=== PATIENT | female | born 2000 | race Caucasian/White ===

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

== ENCOUNTER 2021-10-23 19:25 | Emergency (ER) | payer BC ==
[~2021-10-23] VITALS: Ht 170.2 cm; Wt 65.8 kg
[~2021-10-23 19:25] MED LIST changes: +TRAZ100 PO
[2021-10-23 20:16] LABS: Source, Urine Clean Catch
[2021-10-23 20:19] LABS: Appearance, Urine Clear (Clear); Bilirubin, Urine Neg (Neg); Blood, Urine Neg (Neg); Color, Urine Yellow (P-Yellow); Glucose Qualitative, Urine Neg (Neg); Ketones, Urine Neg (Neg); Leukocyte Esterase, Urine 1+ (Neg); Nitrite, Urine Neg (Neg); Protein, Urine Neg (Neg); Urobilinogen, Urine NORM (Normal)
[2021-10-23 20:28] LABS: Bacteria Many /hpf; Red Blood Cells, Urine Not Seen /hpf (0-2); Squamous Epithelial Cells Mod /hpf (Few)
[2021-10-23 20:50] LABS: BASOPHILS ABSOLUTE AUTO 0.04 K/mm3 (0.00-0.23); BASOPHILS PERCENT AUTO 0 % (0-2); EOSINOPHILS ABSOLUTE AUTO 0.69 K/mm3 (0.00-0.68); EOSINOPHILS PERCENT AUTO 6 % (0-6); Hemoglobin 13.4 g/dL (11.5-16.0); IMMATURE GRAN ABSOLUTE AUTO 0.06 K/mm3 (0.00-0.10); IMMATURE GRAN PERCENT AUTO 1 % (0-1); LYMPHOCYTES ABSOLUTE AUTO 2.66 K/mm3 (0.84-5.20); LYMPHOCYTES PERCENT AUTO 23 % (21-46); MONOCYTES ABSOLUTE AUTO 0.89 K/mm3 (0.16-1.47); MONOCYTES PERCENT AUTO 8 % (4-13); Mean Corpuscular HGB 28.9 pg (26.0-34.0); Mean Corpuscular HGB Conc 33.5 g/dL (31.5-36.5); Mean Corpuscular Volume 86 fL (80-100); Mean Platelet Volume 10.7 fL (9.1-12.4); NEUTROPHILS ABSOLUTE AUTO 7.22 K/mm3 (1.96-9.15); NEUTROPHILS PERCENT AUTO 63 % (41-73); Platelet Count 245 K/mm3 (150-400); Red Blood Cell Count 4.64 M/mm3 (3.80-5.20); White Blood Cell Count 11.56 K/mm3 (4.00-11.30)
[2021-10-23] MEDS ORDERED: HYDCHL25 PO (20:54)
[2021-10-23] MEDS ORDERED: Budeprion Xl300 MG PO (20:55)
[2021-10-23] MEDS ORDERED: LISI5 PO (20:55)
[2021-10-23] MEDS ORDERED: ESTRADIOL1 MG PO (20:56)
[2021-10-23 21:08] LABS: Albumin, Blood 3.3 g/dL (3.4-5.0); Albumin/Globulin Ratio 0.8 (0.8-1.8); Bilirubin, Total 0.4 mg/dL (0.1-1.0); Bun/Creatinine Ratio 13.2 (12.0-20.0); Calcium, Blood 8.8 mg/dL (8.5-10.1); Creatinine, Blood 0.83 mg/dL (0.40-1.00); Potassium, Blood 3.9 mmol/L (3.5-5.5); Total Protein, Blood 7.3 g/dL (6.4-8.2)
[2021-10-23 22:38] LABS: Source, Urine Clean Catch
[2021-10-23 22:41] LABS: Bilirubin, Urine Neg (Neg); Blood, Urine Neg (Neg); Glucose Qualitative, Urine Neg (Neg); Ketones, Urine Neg (Neg); Leukocyte Esterase, Urine Neg (Neg); Nitrite, Urine Neg (Neg); Protein, Urine Neg (Neg); Specific Gravity, Urine 1.015 (1.003-1.022); Urobilinogen, Urine NORM (Normal)
[2021-10-23 22:46] LABS: Appearance, Urine Clear (Clear); Color, Urine Yellow (P-Yellow)
[2021-10-24] MEDS ORDERED: ONDA4ODT MM (03:06)
[2021-10-24] MEDS ORDERED: HYDR1TAB94 PO (03:06)
== END 2021-10-24 03:35 | disposition home or self-care (01) ==
LOC: ER 19:25
PROVIDERS: Physician Assistant
DX: R10.11 Right upper quadrant pain (principal); D72.829 Elevated white blood cell count, unspecified; I10 Essential (primary) hypertension; Z88.0 Allergy status to penicillin; Z79.899 Other long term (current) drug therapy
CPT/HCPCS: 74177; 76705; 80053; 81001; 81003; 81025; 83690; 85025; 87086; 96374; 96375; 99284-25; A9270; J1885; J2270; J3010; Q9967

== ENCOUNTER 2021-12-05 07:44 | Inpatient (IN) | payer BC ==
[~2021-12-05] VITALS: Ht 170.2 cm; Wt 64.4 kg
[~2021-12-05 07:44] MED LIST changes: +BUPROPION XL150 M1 PO; +ESTRADIOL1 MG PO; +HYDCHL25 PO; +HYDR1TAB94 PO; +LISI5 PO; +ONDA4ODT MM
[2021-12-05 09:06] LABS: Source, Urine Clean Catch
[2021-12-05 09:11] LABS: BASOPHILS ABSOLUTE AUTO 0.05 K/mm3 (0.00-0.23); BASOPHILS PERCENT AUTO 0 % (0-2); EOSINOPHILS ABSOLUTE AUTO 0.01 K/mm3 (0.00-0.68); EOSINOPHILS PERCENT AUTO 0 % (0-6); Hematocrit 49.6 % (33.0-51.0); Hemoglobin 16.8 g/dL (11.5-16.0); IMMATURE GRAN PERCENT AUTO 1 % (0-1); LYMPHOCYTES ABSOLUTE AUTO 1.27 K/mm3 (0.84-5.20); LYMPHOCYTES PERCENT AUTO 8 % (21-46); MONOCYTES ABSOLUTE AUTO 0.81 K/mm3 (0.16-1.47); MONOCYTES PERCENT AUTO 5 % (4-13); Mean Corpuscular HGB 28.9 pg (26.0-34.0); Mean Corpuscular HGB Conc 33.9 g/dL (31.5-36.5); Mean Corpuscular Volume 85 fL (80-100); Mean Platelet Volume 10.5 fL (9.1-12.4); NEUTROPHILS ABSOLUTE AUTO 14.76 K/mm3 (1.96-9.15); NEUTROPHILS PERCENT AUTO 87 % (41-73); Platelet Count 384 K/mm3 (150-400); RDW Coefficient Variation 12.2 % (11.7-14.2); RDW Standard Deviation 37.6 fL (35.1-46.3); Red Blood Cell Count 5.82 M/mm3 (3.80-5.20)
[2021-12-05 09:13] LABS: Appearance, Urine Clear (Clear); Bilirubin, Urine Neg (Neg); Blood, Urine Neg (Neg); Color, Urine Yellow (P-Yellow); Glucose Qualitative, Urine Neg (Neg); Ketones, Urine 1+ (Neg); Leukocyte Esterase, Urine 1+ (Neg); Nitrite, Urine Neg (Neg); Protein, Urine 2+ (Neg); Specific Gravity, Urine 1.015 (1.003-1.022); Urobilinogen, Urine NORM (Normal)
[2021-12-05 09:31] LABS: Albumin, Blood 3.5 g/dL (3.4-5.0); Albumin/Globulin Ratio 0.8 (0.8-1.8); Bilirubin, Total 0.7 mg/dL (0.1-1.0); Bun/Creatinine Ratio 11.6 (12.0-20.0); Calcium, Blood 9.1 mg/dL (8.5-10.1); Creatinine, Blood 0.87 mg/dL (0.40-1.00); Globulin, Blood 4.4 g/dL (2.2-4.0); Potassium, Blood 4.4 mmol/L (3.5-5.5); Total Protein, Blood 7.9 g/dL (6.4-8.2)
[2021-12-05 09:35] LABS: Bacteria Mod /hpf; Mucus Light (0-Heavy); Red Blood Cells, Urine 0-2 /hpf (0-2); Squamous Epithelial Cells Few /hpf (Few)
[2021-12-05] MEDS ORDERED: Lisinopril-Hct1 EAC4 PO (20:37)
[2021-12-05] MEDS ORDERED: MONT10T PO (20:37)
[2021-12-05] MEDS ORDERED: ISIBLOOM 28 DA1 EAC1 PO (20:38)
[2021-12-06 05:39] LABS: BASOPHILS ABSOLUTE AUTO 0.02 K/mm3 (0.00-0.23); BASOPHILS PERCENT AUTO 0 % (0-2); EOSINOPHILS ABSOLUTE AUTO 0.19 K/mm3 (0.00-0.68); EOSINOPHILS PERCENT AUTO 3 % (0-6); Hematocrit 36.4 % (33.0-51.0); IMMATURE GRAN ABSOLUTE AUTO 0.01 K/mm3 (0.00-0.10); IMMATURE GRAN PERCENT AUTO 0 % (0-1); LYMPHOCYTES ABSOLUTE AUTO 1.95 K/mm3 (0.84-5.20); LYMPHOCYTES PERCENT AUTO 31 % (21-46); MONOCYTES ABSOLUTE AUTO 0.57 K/mm3 (0.16-1.47); MONOCYTES PERCENT AUTO 9 % (4-13); Mean Corpuscular HGB 28.3 pg (26.0-34.0); Mean Corpuscular Volume 86 fL (80-100); Mean Platelet Volume 11.2 fL (9.1-12.4); NEUTROPHILS ABSOLUTE AUTO 3.63 K/mm3 (1.96-9.15); NEUTROPHILS PERCENT AUTO 57 % (41-73); Platelet Count 199 K/mm3 (150-400); RDW Coefficient Variation 11.9 % (11.7-14.2); RDW Standard Deviation 37.8 fL (35.1-46.3); Red Blood Cell Count 4.24 M/mm3 (3.80-5.20); White Blood Cell Count 6.37 K/mm3 (4.00-11.30)
[2021-12-06 06:11] LABS: Albumin, Blood 2.7 g/dL (3.4-5.0); Anion Gap 6 mmol/L (6-16); Blood Urea Nitrogen 9 mg/dL (8-24); Bun/Creatinine Ratio 10.6 (12.0-20.0); CO2, Blood 27 mmol/L (21-32); Calcium, Blood 8.3 mg/dL (8.5-10.1); Chloride, Blood 107 mmol/L (98-108); Creatinine, Blood 0.85 mg/dL (0.40-1.00); Glomerular Filtration Rate 100 (60-); Glucose, Blood 79 mg/dL (70-99); Phosphorus, Blood 3.1 mg/dL (2.5-4.9); Potassium, Blood 3.6 mmol/L (3.5-5.5); Sodium, Blood 140 mmol/L (136-145)
[2021-12-06 10:38] LABS: C-REACTIVE PROTEIN, EXT RANGE 2.49 mg/dL (0.000-0.300); Thyroid Stimulating Hormone 1.15 uIU/mL (0.360-4.800)
[2021-12-06] MEDS ORDERED: MONT10T PO (15:14)
[2021-12-06] MEDS ORDERED: BUPROPION XL150 M1 PO (15:14)
[2021-12-06] MEDS ORDERED: ZYRTEC10 M2 PO (15:15)
--- NOTE | 2021-12-06 18:11 | NUR ---
SHIFT SUMMARY PT AXO PLEASANT AND COOPERATIVE WITH CARE. VSS. HOME MEDICATIONS BROUGHT IN, RECONCILED AND SENT TO PHARMACY FOR BARCODE. PT WISHES TO TAKE HER HOME MEDICATIONS IN LIEU OF HOSPITAL MEDICATIONS TO SAVE SOME MONEY. PT IS CONCERNED ABOUT THE HOSPITAL BILL. PT MEDICATED FOR PAIN PER EMAR. SHE STATES THAT DILAUDID DIDN'T HELP WITH THE PAIN, JUST MADE HER TIRED AND FEEL BAD. DR HUSTON CALLED. NEW ORDER FOR MORPHINE, GIVEN PER EMAR. THIS TOOK HER PAIN FROM A 10 DOWN TO A 4/10. IV PATENT AND INFUSING PER EMAR. PT TOLERATING FULL LIQUID WELL BUT PREFERS CLEAR LIQUID. PER DR. INIGUEZ PT CAN HAVE FULL LIQUIDS UNTIL TOMORROW AT DINNER. BED IN LOW POSITION, CALL LIGHT WITHIN REACH. PT'S MOTHER AT BEDSIDE THROUGHOUT THE SHIFT.
--- NOTE | 2021-12-07 04:28 | NUR ---
Rn summary: Patient alert and oriented. Pt was having pain at the beginning of shift. Patient was medicated and given meds for break thru pain x2. Pt was able to then rest and has not needed any more pain meds so far this shift. She denies pain at this time. Reminded to ask for pain meds before it gets serous. Pt has preferred clear liquids over the full liquids. Has rested better since midnight. Call light in reach. Will continue to monitor.
[2021-12-07 05:53] LABS: BASOPHILS ABSOLUTE AUTO 0.03 K/mm3 (0.00-0.23); BASOPHILS PERCENT AUTO 1 % (0-2); EOSINOPHILS ABSOLUTE AUTO 0.34 K/mm3 (0.00-0.68); EOSINOPHILS PERCENT AUTO 7 % (0-6); Hematocrit 33.4 % (33.0-51.0); Hemoglobin 11.1 g/dL (11.5-16.0); IMMATURE GRAN ABSOLUTE AUTO 0.01 K/mm3 (0.00-0.10); IMMATURE GRAN PERCENT AUTO 0 % (0-1); LYMPHOCYTES ABSOLUTE AUTO 2.21 K/mm3 (0.84-5.20); LYMPHOCYTES PERCENT AUTO 43 % (21-46); MONOCYTES PERCENT AUTO 8 % (4-13); Mean Corpuscular HGB 29.1 pg (26.0-34.0); Mean Corpuscular HGB Conc 33.2 g/dL (31.5-36.5); Mean Corpuscular Volume 87 fL (80-100); NEUTROPHILS PERCENT AUTO 42 % (41-73); Platelet Count 183 K/mm3 (150-400); RDW Coefficient Variation 12.2 % (11.7-14.2); RDW Standard Deviation 38.9 fL (35.1-46.3); Red Blood Cell Count 3.82 M/mm3 (3.80-5.20); White Blood Cell Count 5.19 K/mm3 (4.00-11.30)
[2021-12-07 06:22] LABS: Albumin, Blood 2.8 g/dL (3.4-5.0); Albumin/Globulin Ratio 0.8 (0.8-1.8); Bilirubin, Total 0.2 mg/dL (0.1-1.0); Bun/Creatinine Ratio 6.2 (12.0-20.0); Calcium, Blood 8.4 mg/dL (8.5-10.1); Creatinine, Blood 0.64 mg/dL (0.40-1.00); Globulin, Blood 3.3 g/dL (2.2-4.0); Potassium, Blood 3.4 mmol/L (3.5-5.5); Total Protein, Blood 6.1 g/dL (6.4-8.2)
--- NOTE | 2021-12-07 18:53 | NUR ---
SHIFT SUMMARY; PATIENT RECEIVED MORPHINE FOR PAIN THROUGHOUT THE DAY. LAST MORPHINE 3MG AT 1800. SHE HAS LR RUNNING AT 125ML/HR. MOHINI IS ON A CLEAR LIQUID DIET. SHE HAS NO COMPLAINTS OF NAUSEA. HER VITAL SIGNS ARE WNL. KELSEY HAS NOT HAD A BOWEL MOVEMENT AND HER GI PANEL REMAINS UNCOLLECTED. SHE IS TO START HER GOLYTELY AT 0700 IN THE AM. SHE IS TO HAVE ONLY WATER AFTER 0100 TONIGHT AND THEN ONLY GOLYTELY TILL NOON WHEN SHE IS TO BE NPO. HAND OFF TO CHON HILLMAN AT SHIFT CHANGE.
[2021-12-08 05:15] LABS: BASOPHILS ABSOLUTE AUTO 0.03 K/mm3 (0.00-0.23); BASOPHILS PERCENT AUTO 1 % (0-2); EOSINOPHILS ABSOLUTE AUTO 0.42 K/mm3 (0.00-0.68); EOSINOPHILS PERCENT AUTO 8 % (0-6); Hemoglobin 11.9 g/dL (11.5-16.0); IMMATURE GRAN ABSOLUTE AUTO 0.01 K/mm3 (0.00-0.10); IMMATURE GRAN PERCENT AUTO 0 % (0-1); LYMPHOCYTES ABSOLUTE AUTO 2.42 K/mm3 (0.84-5.20); LYMPHOCYTES PERCENT AUTO 46 % (21-46); MONOCYTES ABSOLUTE AUTO 0.44 K/mm3 (0.16-1.47); MONOCYTES PERCENT AUTO 8 % (4-13); Mean Corpuscular HGB Conc 33.1 g/dL (31.5-36.5); Mean Corpuscular Volume 88 fL (80-100); Mean Platelet Volume 10.8 fL (9.1-12.4); NEUTROPHILS ABSOLUTE AUTO 1.91 K/mm3 (1.96-9.15); NEUTROPHILS PERCENT AUTO 37 % (41-73); Platelet Count 218 K/mm3 (150-400); RDW Coefficient Variation 11.9 % (11.7-14.2); RDW Standard Deviation 38.6 fL (35.1-46.3); Red Blood Cell Count 4.11 M/mm3 (3.80-5.20); White Blood Cell Count 5.23 K/mm3 (4.00-11.30)
[2021-12-08 05:53] LABS: Albumin/Globulin Ratio 0.8 (0.8-1.8); Bilirubin, Total 0.2 mg/dL (0.1-1.0); Bun/Creatinine Ratio 2.5 (12.0-20.0); C-REACTIVE PROTEIN, EXT RANGE 1.28 mg/dL (0.000-0.300); Calcium, Blood 8.9 mg/dL (8.5-10.1); Creatinine, Blood 0.81 mg/dL (0.40-1.00); Globulin, Blood 3.7 g/dL (2.2-4.0); Potassium, Blood 3.6 mmol/L (3.5-5.5); Total Protein, Blood 6.7 g/dL (6.4-8.2)
--- NOTE | 2021-12-08 06:21 | NUR ---
SUMMARY NO NEW ISSUES. PT DISCOMFORT TX PER EMAR. PT DENIES N/V. PT WATER ONLY AT 0100 HRS. NO BM NOTED THIS SHIFT. CALLL IGHT IN REACH.
--- NOTE | 2021-12-08 14:05 | NUR ---
THIS NURSE CALLED DAY SURGERY TO NOTIFY THEM THAT PATIENT FINISHED THE PREP LATE. THEY STATED THAT SHE WAS NOT ON THE SCHEDULE. DR INIGUEZ CALLED AT 1405 AND WAS NOTIFIED THAT SHE WAS NOT ON THE SCHEDULE AND THAT PREP WAS COMPLETED LATE. HE STATED THAT HE WAS GOING TO CALL [facility] TO SCHEDULE PATIENT
--- NOTE | 2021-12-08 15:23 | NUR ---
PT HAS A POWERGLIDE IN R UPPER INSIDE ARM THAT FLOWS WELL TO GRAVITY.
--- NOTE | 2021-12-08 15:46 | NUR ---
12/08/21 1546 Preeti Kerr HISTORY, CHART, MEDICATIONS AND ALLERGIES REVIEWED BEFORE START OF PROCEDURE. PATIENT CONFIRMS NPO STATUS AND AGREES WITH SCHEDULED PROCEDURE. 3-LEAD EKG REVIEWED WITH PHYSICIAN PRIOR TO START OF PROCEDURE. MONITOR INTACT WITH CONTINUOUS PULSE OXIMETRY,CAPNOGRAPHY, 3-LEAD EKG, INTERMITTENT BP. SUPPLEMENTAL O2 TO BE TITRATED THROUGHOUT PROCEDURE TO MAINTAIN O2 SATURATION ABOVE 90%. PATIENT DETERMINED TO BE ASA APPROPRIATE FOR PROPOFOL SEDATION PRIOR TO START OF PROCEDURE BY . MALLAMPATI CLASS 1 AIRWAY: COMPLETE VISULATIZATION OF THE SOFT PALATE.
--- NOTE | 2021-12-08 18:52 | NUR ---
SHIFT SUMMARY PT AXO, PLEASANT AND COOPERATIVE WITH CARE. POWERGLIDE PLACED TODAY, PATENT AND INFUSING PER EMAR. VSS THOUGH HTN NOTED. PT REFUSED LISINOPRIL STATING THAT SHE THINKS HER ONSET OF CURRERNT SYMPTOMS CORRELATE WITH THE TIMING OF TAKING THIS MEDICATION. MEDICATED FOR PAIN AND NAUSEA PER EMAR. PT HAD UPPER AND LOWER ENDOSCOPY, SEE NOTES. BED IN LOW POSTITION, CALL LIGHT WITHIN REACH. REPORT GIVEN TO MANAGER DESKTOP NURSE WHO ASSUMES CARE AT THIS TIME.
--- NOTE | 2021-12-09 05:29 | NUR ---
Rn summary: Pt is alert and oriented. More talkative, smiles, has less flat affect. Pt medicated x2 for abdominal pain at 1930 and 0510 with morphine 4 mg IV. Powerglide draws for lab draw. Pt has rested well, up independantly to the bathroom. Call light in reach. Hopes to be discharged today.
[2021-12-09 05:55] LABS: Anion Gap 4 mmol/L (6-16); Blood Urea Nitrogen 4 mg/dL (8-24); Bun/Creatinine Ratio 5.1 (12.0-20.0); CO2, Blood 29 mmol/L (21-32); Calcium, Blood 8.7 mg/dL (8.5-10.1); Chloride, Blood 107 mmol/L (98-108); Creatinine, Blood 0.78 mg/dL (0.40-1.00); Glomerular Filtration Rate 111 (60-); Glucose, Blood 85 mg/dL (70-99); Phosphorus, Blood 4.7 mg/dL (2.5-4.9); Potassium, Blood 3.7 mmol/L (3.5-5.5); Sodium, Blood 140 mmol/L (136-145)
[2021-12-09] MEDS ORDERED: Percocet 5-3251 EACH PO (12:00)
[2021-12-09] MEDS ORDERED: MIRALAX17 GM PO (12:02)
[2021-12-09] MEDS ORDERED: DOCU100 PO (12:03)
[2021-12-09] MEDS ORDERED: ONDA4ODT MM (12:09)
== END 2021-12-09 13:33 | disposition home or self-care (01) | DRG 392 ==
LOC: ER 07:44 → MEDS 18:51
PROVIDERS: Emergency Medicine; Family Medicine; Internal Medicine; Internal Medicine Gastroenterology; ADMIT Internal Medicine
PROC: 3E03329 Introduction of Other Anti-infective into Peripheral Vein, Percutaneous Approach (ICD-10-PCS; 2021-12-05)
PROC: 0DBE8ZX Excision of Large Intestine, Via Natural or Artificial Opening Endoscopic, Diagnostic (ICD-10-PCS; 2021-12-08)
PROC: 0DB98ZX Excision of Duodenum, Via Natural or Artificial Opening Endoscopic, Diagnostic (ICD-10-PCS; principal; 2021-12-08 15:45)
PROC: 0DB68ZX Excision of Stomach, Via Natural or Artificial Opening Endoscopic, Diagnostic (ICD-10-PCS; 2021-12-08 15:45)
DX: A09 Infectious gastroenteritis and colitis, unspecified (principal); R18.8 Other ascites; E87.6 Hypokalemia; I10 Essential (primary) hypertension; Z98.890 Other specified postprocedural states; Z88.0 Allergy status to penicillin; Z79.899 Other long term (current) drug therapy; F41.3 Other mixed anxiety disorders
CPT/HCPCS: 36415; 36416; 74177; 76830; 76856; 80053; 80069; 81001; 81025; 83605; 83690; 83735; 84100; 84145; 84443; 85025; 86140; 87040; 87086; 88305; 88342; 96365-59; 96375; 99285-25; A9270; J0694; J1170; J1885; J2250; J2270; J2405; J2550; J2704; J7030; J7120; Q9967

== ENCOUNTER → 2022-03-04 | Outpatient (CLI) | payer BC ==
[~2022-03-04] MED LIST changes: +DOCU100 PO; +ISIBLOOM 28 DA1 EAC1 PO; +Lisinopril-Hct1 EAC4 PO; +MIRALAX17 GM PO; +MONT10T PO; +Percocet 5-3251 EACH PO; +ZYRTEC10 M2 PO
[2022-03-05 07:09] LABS: HBSAG SCREEN Negative (Negative); HCV ANTIBODY <0.1 (0.0-0.9); HIV AB/P24 AG SCREEN Non Reactive (Non Reactive)
== END | disposition home or self-care (01) ==
LOC: LAB SHORT 12:10 → LAB 12:10
PROVIDERS: Physician Assistant
DX: Z77.21 Contact with and (suspected) exposure to potentially hazardous body fluids (principal)
CPT/HCPCS: 84460; 86317; 86803; 87340; 87389

== ENCOUNTER → 2022-06-26 | Outpatient (CLI) | payer BC | END | disposition home or self-care (01) | LOC: LAB SHORT 14:17 | DX: Z77.21 Contact with and (suspected) exposure to potentially hazardous body fluids (principal) | CPT/HCPCS: 86803 ==

== ENCOUNTER → 2022-07-06 | Outpatient (CLI) | payer BC | END | disposition home or self-care (01) | LOC: LAB 15:30 → LAB SHORT 15:30 | DX: Z77.21 Contact with and (suspected) exposure to potentially hazardous body fluids (principal) | CPT/HCPCS: 86703 ==

== ENCOUNTER 2022-12-01 11:38 | Emergency (ER) | payer BC ==
[~2022-12-01] VITALS: Ht 170.2 cm; Wt 63.5 kg
[2022-12-01 12:37] LABS: BASOPHILS ABSOLUTE AUTO 0.02 K/mm3 (0.00-0.23); BASOPHILS PERCENT AUTO 0 % (0-2); EOSINOPHILS PERCENT AUTO 2 % (0-6); Hematocrit 41.2 % (33.0-51.0); Hemoglobin 13.6 g/dL (11.5-16.0); IMMATURE GRAN ABSOLUTE AUTO 0.02 K/mm3 (0.00-0.10); IMMATURE GRAN PERCENT AUTO 0 % (0-1); LYMPHOCYTES ABSOLUTE AUTO 0.82 K/mm3 (0.84-5.20); LYMPHOCYTES PERCENT AUTO 16 % (21-46); MONOCYTES ABSOLUTE AUTO 0.87 K/mm3 (0.16-1.47); MONOCYTES PERCENT AUTO 17 % (4-13); Mean Corpuscular HGB 28.7 pg (26.0-34.0); Mean Corpuscular Volume 87 fL (80-100); Mean Platelet Volume 10.3 fL (9.1-12.4); NEUTROPHILS ABSOLUTE AUTO 3.25 K/mm3 (1.96-9.15); NEUTROPHILS PERCENT AUTO 64 % (41-73); Platelet Count 237 K/mm3 (150-400); RDW Standard Deviation 38.7 fL (35.1-46.3); Red Blood Cell Count 4.74 M/mm3 (3.80-5.20); White Blood Cell Count 5.08 K/mm3 (4.00-11.30)
[2022-12-01 12:49] LABS: Albumin, Blood 3.4 g/dL (3.4-5.0); Albumin/Globulin Ratio 0.8 (0.8-1.8); Bilirubin, Total 0.2 mg/dL (0.1-1.0); Bun/Creatinine Ratio 8.8 (12.0-20.0); Calcium, Blood 8.9 mg/dL (8.5-10.1); Creatinine, Blood 0.8 mg/dL (0.40-1.00); Globulin, Blood 4.4 g/dL (2.2-4.0); Potassium, Blood 3.9 mmol/L (3.5-5.5); Total Protein, Blood 7.8 g/dL (6.4-8.2)
[2022-12-01 13:43] LABS: Source, Urine Clean Catch
[2022-12-01 13:45] LABS: Appearance, Urine Clear (Clear); Bilirubin, Urine Neg (Neg); Blood, Urine Neg (Neg); Color, Urine Yellow (P-Yellow); Glucose Qualitative, Urine Neg (Neg); Ketones, Urine Neg (Neg); Leukocyte Esterase, Urine Neg (Neg); Nitrite, Urine Neg (Neg); Protein, Urine Neg (Neg); Specific Gravity, Urine 1.015 (1.003-1.022); Urobilinogen, Urine NORM (Normal)
[2022-12-01] MEDS ORDERED: LOSARTAN POTASS25 M2 PO (15:00)
[2022-12-01] MEDS ORDERED: ZOLOFT25 MG PO (15:00)
[2022-12-01] MEDS ORDERED: OXAYDO5 M1 PO (16:41)
[2022-12-01] MEDS ORDERED: PROC5 PO (16:41)
[2022-12-01 16:51] VITALS: BP 122/77
== END 2022-12-01 16:52 | disposition home or self-care (01) ==
LOC: ER 11:38
PROVIDERS: Physician Assistant
DX: R10.9 Unspecified abdominal pain (principal); R11.0 Nausea; R19.7 Diarrhea, unspecified; Z88.0 Allergy status to penicillin; Z79.899 Other long term (current) drug therapy; I10 Essential (primary) hypertension
CPT/HCPCS: 80053; 81003; 83690; 84703; 85025; 96361; 96374; 96375; 99284-25; A9270; J0780; J1885; J2405; J3010; J7030

== ENCOUNTER → 2023-02-12 | Outpatient (CLI) | payer BC ==
[~2023-02-12] MED LIST changes: +LOSARTAN POTASS25 M2 PO; +OXAYDO5 M1 PO; +PROC5 PO; +ZOLOFT25 MG PO
== END ==
LOC: LAB SHORT 15:55 → LAB 15:55
DX: R19.8 Other specified symptoms and signs involving the digestive system and abdomen (principal); K62.5 Hemorrhage of anus and rectum; R11.2 Nausea with vomiting, unspecified; R10.9 Unspecified abdominal pain
CPT/HCPCS: 83993

== ENCOUNTER 2023-04-10 05:51 | Emergency (ER) | payer BC ==
[~2023-04-10] VITALS: Ht 170.2 cm; Wt 63.5 kg
[2023-04-10 07:17] VITALS: BP 136/96
== END 2023-04-10 07:24 | disposition home or self-care (01) ==
LOC: ER 05:51
DX: S93.402A Sprain of unspecified ligament of left ankle, initial encounter (principal); W10.8XXA Fall (on) (from) other stairs and steps, initial encounter; I10 Essential (primary) hypertension; Z88.0 Allergy status to penicillin; Z79.899 Other long term (current) drug therapy; Z91.012 Allergy to eggs
CPT/HCPCS: 73610; 99283-25